=== PATIENT | female | born 2005 | race Caucasian/White ===

== ENCOUNTER 2024-04-11 19:31 | Emergency (ER) | payer MEDICAID ==
[~2024-04-11] VITALS: Ht 165.1 cm; Wt 69.0 kg
[2024-04-11 19:42] VITALS: BP 135/75; RESP 18; TEMP 36.9; O2SAT 100
[2024-04-11 19:43] VITALS: PULSE 102; O2SAT 98
== END 2024-04-11 21:00 | disposition left against medical advice (07) ==
LOC: ER 19:31
DX: Z00.8 Encounter for other general examination (principal); F41.9 Anxiety disorder, unspecified; F20.9 Schizophrenia, unspecified; F31.9 Bipolar disorder, unspecified; Z53.21 Procedure and treatment not carried out due to patient leaving prior to being seen by health care provider